=== PATIENT | female | born 1995 | race Hispanic/Latino ===

== ENCOUNTER 2019-04-11 08:03 | Observation (INO) | payer OTHER, MEDICAID | END 2019-04-11 10:41 | disposition home or self-care (01) | LOC: LDH 08:03 | PROVIDERS: ADMIT Specialist; ATTEND Specialist | DX: Z34.93 Encounter for supervision of normal pregnancy, unspecified, third trimester (principal); Z3A.32 32 weeks gestation of pregnancy | CPT/HCPCS: 59025; 76819; G0378 ×3 ==

== ENCOUNTER 2019-04-14 08:02 | Observation (INO) | payer OTHER, MEDICAID ==
[~2019-04-14] VITALS: Ht 160 cm; Wt 103.9 kg
[2019-04-14 09:00] VITALS: BP 108/72
== END 2019-04-14 09:48 | disposition home or self-care (01) ==
LOC: LDH 08:02 → WSH 08:03 → LDH 08:04
PROVIDERS: ADMIT Specialist; ATTEND Specialist
DX: Z34.93 Encounter for supervision of normal pregnancy, unspecified, third trimester (principal); Z3A.31 31 weeks gestation of pregnancy
CPT/HCPCS: 59025; 76819; G0378 ×2

== ENCOUNTER 2019-05-05 10:52 | Observation (INO) | payer OTHER, MEDICAID ==
[~2019-05-05] VITALS: Ht 160 cm; Wt 103.9 kg
[2019-05-05 12:12] LABS: BASOPHILS % (AUTO) 0.4 % (0.0-5.0); EOSINOPHILS % (AUTO) 0.6 % (0.0-8.0); LYMPHOCYTES % (AUTO) 22.6 % (21.0-51.0); MEAN CORPUSCULAR HEMOGLOBIN 29.4 pg (27.0-33.0); MEAN CORPUSCULAR HGB CONC 33.3 g/dL (32.0-36.0); MEAN CORPUSCULAR VOLUME 88.4 fL (79-99); MONOCYTES % (AUTO) 6.6 % (3.0-13.0); NEUTROPHILS % (AUTO) 69.8 % (40.0-77.0); PLATELET COUNT (AUTO) 222 K/uL (130-400); RED BLOOD CELL COUNT(AUTO) 3.39 MIL/uL (4.00-5.50); RED CELL DISTRIBUTION WIDTH 14.4 % (11.0-15.5); WHITE BLOOD COUNT (AUTO) 10.8 K/uL (4.8-10.8)
[2019-05-05 12:15] LABS: APPEARANCE,URINE Clear (CLEAR); BILIRUBIN,URINE Negative (NEGATIVE); COLOR,URINE Yellow (YELLOW); GLUCOSE, URINE (UA) Negative (NEGATIVE); KETONES,URINE Negative (NEGATIVE); LEUKOCYTE ESTERASE ,URINE Negative (NEGATIVE); NITRATE,URINE Negative (NEGATIVE); OCCULT BLOOD,URINE Negative (NEGATIVE); PH,URINE 6.5 (5.0-8.0); PROTEIN,URINE Trace mg/dL (NEGATIVE); UROBILINOGEN,URINE 0.2 mg/dL (0.2-1.0)
[2019-05-05 12:21] LABS: INR 0.89 (0.85-1.15); PARTIAL THROMBOPLASTIN TIME 28.1 SEC (26.3-35.5); PROTHROMBIN TIME 9.4 SEC (9.6-11.6)
[2019-05-05 12:26] LABS: CREATININE 0.7 mg/dL (0.5-1.5); POTASSIUM 4.5 mmol/L (3.5-5.1)
[2019-05-05 12:33] LABS: BACTERIA,URINE Rare /HPF (None Seen); RBC,URINE 0-1 /HPF (0-1); SQUAMOUS EPITHELIAL CELL,UR Few /HPF (0-2); WBC,URINE 0-1 /HPF (0-1)
[2019-05-05 12:50] LABS: ALBUMIN 2.6 g/dL (3.5-5.0); BILIRUBIN,TOTAL 0.2 mg/dL (0.2-1.0); TOTAL PROTEIN, SERUM 6.9 g/dL (6.0-8.3); URIC ACID 3.9 mg/dL (2.6-7.2)
[2019-05-05] MEDS ORDERED: LACTATED RINGERS 1000ML IV SCH (14:00)
[2019-05-05] MEDS ORDERED: ACETAMINOPHEN EXTRA STRENGTH 500 MG TABLET PO PRN (16:30)
[2019-05-05 19:30] VITALS: BP 160/83
[2019-05-05] MEDS ORDERED: LACTATED RINGERS 1000ML 1,000 ML IV SCH (20:15)
[2019-05-05] MEDS: LABETALOL HCL 100 MG TABLET PO SCH (20:41)
[2019-05-05 21:10] VITALS: BP 134/82
[2019-05-05] MEDS ORDERED: MUPI22OI2 TP (23:03)
[2019-05-05] MEDS ORDERED: [UNRECOGNIZED DRUG - CODE] INJ (23:03)
[2019-05-05] MEDS ORDERED: PREN1TAB80 PO (23:03)
[2019-05-05] MEDS ORDERED: FAMC250T4 PO (23:03)
[2019-05-05] MEDS ORDERED: FERR-82 PO (23:03)
[2019-05-05] MEDS ORDERED: TRIA15CR48 TP (23:11)
[2019-05-05 23:23] VITALS: BP 139/80
[2019-05-06 03:38] VITALS: BP 134/80
[2019-05-06] MEDS: LACTATED RINGERS 1000ML 1,000 ML IV SCH (06:40)
--- NOTE | 2019-05-06 07:10 | NUR ---
report given to marjan López RN
[2019-05-06 07:40] VITALS: BP 141/87
--- NOTE | 2019-05-06 07:40 | NUR ---
DR. PANDA ROUNDED DURING PATIENT ASSESSMENT AND BLOOD PRESSURE WAS 141/87. DR. PANDA INDICATED TO PATIENT THAT SHE COULD GO HOME AFTER 24 HOUR URINE COLLECTION ON BEDREST. PATIENT INDICATED HAVE MILD CONTRACTIONS AND WAS MADE AWARE IF SHE GOES INTO LABOR HE WILL NOT TRY TO STOP THE LABOR PROCESS. PATIENT VERBALIZED UNDERSTANDING. PIV PATENT TO RIGHT WRIST WITH 18 GAUGE AND HEART TONES BY DOPPLER WERE 144BPM. PATIENT DOES STATE HAVING A MILD CLEAR TO YELLOWISH DISCHARGE. WILL FOLLOW UP WITH DR. PANDA SCHEDULED.
[2019-05-06] MEDS: LABETALOL HCL 100 MG TABLET PO SCH (09:12)
--- NOTE | 2019-05-06 09:30 | NUR ---
PATIENT INDICATED NOT FAMILIAR WITH VACCINE FOR TDAP AND LITERATURE GIVEN AT THIS TIME. INFO GIVEN TO PATIENT OF IMPORTANCE OF GETTING VACCINE WHILE STILL VERSUS AFTER DELIVERY.
[2019-05-06 11:45] VITALS: BP 162/85
[2019-05-06 12:36] LABS: CREATININE,SERUM FOR CRCL 0.7 mg/dL (0.6-1.3)
[2019-05-06 12:38] LABS: COLLECTION PERIOD,URINE 24 HR; TOTAL VOLUME 24HRS,URINE 2900 mL; TPROTEIN TIMED,URINE 25 mg/dL; TPROTEIN U,24HR CALC 725 mg/24HR (0-165)
--- NOTE | 2019-05-06 12:45 | NUR ---
DISCHARGE INSTRUCTIONS GIVEN AND PATIENT REFUSED TDAP. INFO ON TDAP PROVIDED AGAIN WITH DISCHARGE PAPERWORK FOR FOLLOW UP AFTER DELIVERY. FOLLOW-UP APPOINTMENT CONFIRMED WITH DR. PANDA ON 05/10/19 AT 10:30AM. SYMPTOMS OF PRE-ECLAMPSIA REINFORCED AND LITERATURE GIVEN TO PATIENT.
--- NOTE | 2019-05-06 13:00 | NUR ---
PATIENT WAS TAKEN VIA W/C TO FAMILY VEHICLE IN STABLE CONDITION. PATIENT DENIES PAIN. DISCHARGED PATIENT TO SIGNIFICANT OTHER.
== END 2019-05-06 13:00 | disposition home or self-care (01) ==
LOC: LDH 10:52 → WSH 21:00
PROVIDERS: ADMIT Specialist; ATTEND Specialist
DX: O13.3 Gestational [pregnancy-induced] hypertension without significant proteinuria, third trimester (principal); O98.513 Other viral diseases complicating pregnancy, third trimester; B00.9 Herpesviral infection, unspecified; O24.419 Gestational diabetes mellitus in pregnancy, unspecified control; Z3A.34 34 weeks gestation of pregnancy
CPT/HCPCS: 36415; 80053; 81001; 82575; 82948 ×4; 84156; 84550; 85025; 85384; 85610; 85730; G0378 ×27; J7120 ×3; 96360; 96361

== ENCOUNTER 2019-05-11 06:01 | Inpatient (IN) | payer OTHER, MEDICAID | END 2019-05-14 15:55 | disposition home or self-care (01) | LOC: LDH 06:01 → WSH 05-13 20:55 ==

== ENCOUNTER 2024-04-21 18:00 | Inpatient (IN) | payer MEDICAID, OTHER ==
[~2024-04-21] VITALS: Ht 160 cm; Wt 114.8 kg
[~2024-04-21 18:00] MED LIST: FAMC250T PO; FERR-82 PO; MUPI22OI2 TP; PREN1TAB80 PO; TRIA15CR48 TP; [UNRECOGNIZED DRUG - CODE] INJ
[2024-04-21 18:45] LABS: BASOPHILS # (AUTO) 0.03 K/uL (0.00-0.20); BASOPHILS % (AUTO) 0.3 % (0.0-5.0); EOSINOPHILS # (AUTO) 0.05 K/uL (0.00-0.70); EOSINOPHILS % (AUTO) 0.5 % (0.0-8.0); HEMATOCRIT 28.2 % (36-48); IMMATURE GRANULOCYTE ABSOLUTE 0.06 K/uL (0-1); LYMPHOCYTES # (AUTO) 2.3 K/uL (1.0-4.8); LYMPHOCYTES % (AUTO) 22.9 % (21.0-51.0); MEAN CORPUSCULAR HEMOGLOBIN 24.2 pg (27.0-33.0); MEAN CORPUSCULAR HGB CONC 30.9 g/dL (32.0-36.0); MEAN CORPUSCULAR VOLUME 78.3 fL (79-99); MONOCYTES # (AUTO) 0.8 K/uL (0.1-1.0); MONOCYTES % (AUTO) 7.4 % (3.0-13.0); NEUTROPHILS # (AUTO) 6.9 K/uL (1.8-7.7); NEUTROPHILS % (AUTO) 68.3 % (40.0-77.0); NUCLEATED RED BLOOD CELLS 0.2 % (0.0-0.19); PLATELET COUNT (AUTO) 198 K/uL (130-400); RED CELL DISTRIBUTION WIDTH 15.3 % (11.0-15.5); WHITE BLOOD COUNT (AUTO) 10.1 K/uL (4.8-10.8)
[2024-04-21 18:46] LABS: APPEARANCE,URINE CLEAR (CLEAR); BILIRUBIN,URINE NEGATIVE (NEGATIVE); COLOR,URINE LIGHT-YELLOW (YELLOW); GLUCOSE, URINE (UA) NEGATIVE (NEGATIVE); KETONES,URINE NEGATIVE (NEGATIVE); LEUKOCYTE ESTERASE ,URINE NEGATIVE Leu/uL (NEGATIVE); NITRATE,URINE NEGATIVE (NEGATIVE); OCCULT BLOOD,URINE SMALL (NEGATIVE); PH,URINE 6.5 (5.0-8.0); PROTEIN,URINE 300 mg/dL (NEGATIVE); UROBILINOGEN,URINE 0.2 mg/dL (0.2-1.0)
[2024-04-21 18:49] LABS: ADD UA MICROSCOPIC YES
[2024-04-21 18:52] LABS: BACTERIA,URINE FEW /HPF (None Seen); CREATININE 0.9 mg/dL (0.5-1.0); POTASSIUM 3.9 mmol/L (3.5-5.1); SQUAMOUS EPITHELIAL CELL,UR FEW /HPF (0-2); UNCLASSIFIED CRYSTAL 1 /HPF (None Seen)
[2024-04-21 18:55] LABS: INR <= 0.93 (0.85-1.15); PROTHROMBIN TIME 9.9 SEC (9.6-11.6)
[2024-04-21 18:56] LABS: PARTIAL THROMBOPLASTIN TIME 24.2 SEC (26.3-35.5)
[2024-04-21 18:57] LABS: ALBUMIN 2.1 g/dL (3.5-5.0); BILIRUBIN,TOTAL 0.3 mg/dL (0.2-1.0); TOTAL PROTEIN, SERUM 6.6 g/dL (6.0-8.3); URIC ACID 5.6 mg/dL (2.6-7.2)
[2024-04-21] MEDS: ALBUTEROL 0.042% 1.25MG/3ML IH ONE (18:57)
[2024-04-21 19:00] VITALS: PULSE 91; RESP 20
[2024-04-21 19:11] LABS: FIBRINOGEN 762 mg/dL (180-350)
[2024-04-21] MEDS: LABETALOL 20MG VIAL ONE (19:29)
[2024-04-21] MEDS: NIFEDIPINE 10 MG CAP PO SCH (19:39)
[2024-04-21] MEDS: LABETALOL 20MG VIAL IV PRN (19:41)
[2024-04-21] MEDS: HYDRALAZINE 25MG TABLET PO SCH (21:01)
[2024-04-21 22:24] LABS: HIV 1&2 ANTIBODY Non-Reactive (Negative)
[2024-04-21 22:25] LABS: HIV-1 p24 Antigen Non-Reactive (Negative)
[2024-04-22] VITALS (25 sets, daily range): BP systolic 121–148; BP diastolic 57–86; PULSE 75–100; RESP 17–24; O2SAT 93–98
[2024-04-22] MEDS: LACTATED RINGERS 1000ML 1,000 ML IV SCH (04:57)
[2024-04-22] MEDS: LABETALOL 20MG VIAL IV PRN (05:00)
[2024-04-22] MEDS: ALBUTEROL 0.083% 2.5 MG/3 ML INH IH ONE (07:28)
[2024-04-22] MEDS ORDERED: CEFAZOLIN SODIUM 1 GM VIAL IVPB PRN (08:30)
[2024-04-22] MEDS ORDERED: MORPHINE PF 100MG/10ML AMP IV ONE (08:30)
[2024-04-22] MEDS: CEFAZOLIN SODIUM 3 GM in DEXTROSE 5%-WATER 100 ML IVPB PRN (08:30)
[2024-04-22] MEDS: CEFAZOLIN SODIUM 3 GM VIAL IVPB ONE (08:30)
[2024-04-22] MEDS ORDERED: FENTANYL CITRATE PF 50 MCG/1 ML 2ML VIAL ONE (08:47)
[2024-04-22] MEDS ORDERED: MIDAZOLAM HCL 1 MG/ML 2ML VIAL ONE (08:55)
[2024-04-22] MEDS ORDERED: KETAMINE HCL 100 MG/ML 5ML VIAL IJ ONE (08:55)
[2024-04-22] MEDS ORDERED: SUCCINYLCHOLINE CHLORIDE 20 MG/ML 10 ML VIAL ONE (08:58)
[2024-04-22] MEDS ORDERED: PROPOFOL 10 MG/ML 20ML VIAL IV ONE ×2 (08:58→09:13)
[2024-04-22] MEDS ORDERED: ALBUTEROL INHALER 90MCG/INH IH ONE (09:33)
[2024-04-22] MEDS ORDERED: CALDOLOR 800MG+NS 250ML 250 ML IV ONE (09:56)
[2024-04-22] MEDS: MEPERIDINE-PF 25 MG/ML SYG ONE ×2 (10:05→10:15)
[2024-04-22] MEDS: CALDOLOR 800MG+NS 250ML 250 ML IV PRN (10:05)
[2024-04-22] MEDS ORDERED: OXYTOCIN-LR 30 UNITS/500ML 500 ML IV PRN (11:00)
[2024-04-22] MEDS ORDERED: 0.9%NACL 10ML VIAL IVP PRN (11:00)
[2024-04-22] MEDS: PROMETHAZINE HCL 25 MG/ML 1ML AMPULE IM PRN (11:26)
[2024-04-22] MEDS: MEPERIDINE-PF 75 MG/ML SYG IM PRN (11:27)
[2024-04-22] MEDS: ALBUTEROL 0.083% 2.5 MG/3 ML INH IH SCH (11:32)
[2024-04-22] MEDS: DEXTROSE 5 %-0.45 % NACL 1,000 ML IV PRN (12:16)
[2024-04-22 14:03] LABS: RAPID PLASMA REAGIN NONREACTIVE (NONREACTIVE)
[2024-04-22] MEDS: HYDRALAZINE 20MG/ML VIAL IV PRN (17:20)
[2024-04-22] MEDS: CALDOLOR 800MG+NS 250ML 250 ML IV SCH (18:20)
[2024-04-22] MEDS: LABETALOL HCL 100 MG TABLET PO SCH (20:59)
[2024-04-23] VITALS (14 sets, daily range): BP systolic 124–141; BP diastolic 60–84; PULSE 88–105; RESP 18–22; O2SAT 96–97
[2024-04-23] MEDS ORDERED: BISACODYL 10 MG SUPP.RECT RC PRN (05:00)
[2024-04-23] MEDS ORDERED: LANOLIN 30GM OINTMENT TP PRN ×2 (05:00→21:00)
[2024-04-23 06:31] LABS: HEMATOCRIT 22.6 % (36-48); MEAN CORPUSCULAR HEMOGLOBIN 24.7 pg (27.0-33.0); MEAN CORPUSCULAR HGB CONC 31.9 g/dL (32.0-36.0); MEAN CORPUSCULAR VOLUME 77.7 fL (79-99); RED BLOOD CELL COUNT(AUTO) 2.91 MIL/uL (4.00-5.50); RED CELL DISTRIBUTION WIDTH 15.7 % (11.0-15.5); WHITE BLOOD COUNT (AUTO) 10.8 K/uL (4.8-10.8)
[2024-04-23] MEDS: ACETAMINOPHEN 500 MG TABLET PO PRN (07:42)
[2024-04-23] MEDS: IBUPROFEN 600 MG TABLET ONE (08:54)
[2024-04-23] MEDS: DOCUSATE SODIUM 100 MG CAP PO SCH (08:55)
[2024-04-23] MEDS: ACETAMINOPHEN WITH CODEINE 1 TAB TAB PO PRN (12:00)
[2024-04-23] MEDS: SIMETHICONE 80 MG TAB.CHEW PO PRN (20:34)
[2024-04-23] MEDS: HYDROCODONE/ACETAMINOPHEN 5/325 MG TAB PO PRN (23:39)
[2024-04-24 03:05] VITALS: BP 134/84; PULSE 96; RESP 20
[2024-04-24] MEDS: IBUPROFEN 600 MG TABLET PO PRN (05:00)
[2024-04-24 06:36] VITALS: PULSE 96; RESP 18
[2024-04-24 06:37] VITALS: PULSE 96; RESP 18; O2SAT 96
[2024-04-24 08:24] VITALS: BP 126/61; PULSE 121
[2024-04-24] MEDS ORDERED: PREN-18 PO (10:30)
[2024-04-24] MEDS ORDERED: LABE100T7 PO (10:31)
[2024-04-24] MEDS ORDERED: NIFE20CA PO (10:33)
[2024-04-24] MEDS ORDERED: IBUP-2088 PO (10:34)
[2024-04-24 11:34] VITALS: PULSE 92; RESP 18
[2024-04-24 11:55] VITALS: BP 105/50; PULSE 100; RESP 18
== END 2024-04-24 12:24 | disposition home or self-care (01) | DRG 540 ==
LOC: OBSVTOIN 18:00 → INTOOBSV 18:00 → LDH 18:00
PROVIDERS: ADMIT Obstetrics & Gynecology; ATTEND Obstetrics & Gynecology
PROC: 4A0HXCZ Measurement of Products of Conception, Cardiac Rate, External Approach (ICD-10-PCS; 2024-04-21)
PROC: 10D00Z1 Extraction of Products of Conception, Low, Open Approach (ICD-10-PCS; principal; 2024-04-22 08:28)
DX: O11.4 Pre-existing hypertension with pre-eclampsia, complicating childbirth (principal); O24.425 Gestational diabetes mellitus in childbirth, controlled by oral hypoglycemic drugs; G89.29 Other chronic pain; O34.211 Maternal care for low transverse scar from previous cesarean delivery; O99.02 Anemia complicating childbirth; O75.89 Other specified complications of labor and delivery; O69.81X0 Labor and delivery complicated by cord around neck, without compression, not applicable or unspecified; Z3A.37 37 weeks gestation of pregnancy; Z37.0 Single live birth
CPT/HCPCS: 36415; 59510; 71045; 76819; 80053; 81001; 84550; 85025; 85027; 85384; 85610; 85730; 86592; 86701; 86850; 86900; 86901; 87340; 87390; 94640; 94664; A4344; G0378; J0330; J0360; J0690; J1741; J2175; J2250; J2274; J2550; J2704; J3010; J3490; J7120; A4248; A4600